=== PATIENT | male | born 2000 | race Caucasian/White ===

== ENCOUNTER 2019-09-09 23:32 | Emergency (ER) | payer BC ==
[2019-09-09] MEDS ORDERED: Ibuprofen 200 MG TAB ONE (23:55)
--- NOTE | 2019-09-10 00:01 | RAD ---
RIGHT ANKLE THREE VIEWS: HISTORY: Right ankle pain, injury. FINDINGS: Soft tissue swelling is present. The ankle mortise is maintained. No acute fracture or dislocation is identified. POS: [facility]
== END 2019-09-10 00:15 | disposition home or self-care (01) ==
LOC: NAV ERS 23:32
DX: S93.401A Sprain of unspecified ligament of right ankle, initial encounter (principal); F98.8 Other specified behavioral and emotional disorders with onset usually occurring in childhood and adolescence; Z79.899 Other long term (current) drug therapy; X50.1XXA Overexertion from prolonged static or awkward postures, initial encounter

== ENCOUNTER 2020-02-08 20:43 | Emergency (ER) | payer BC ==
[2020-02-08] MEDS ORDERED: Lidocaine 1% (PF) 30 ML VIAL ONE (21:00)
[2020-02-08] MEDS ORDERED: Adacel (T-DAP) 0.5 ML SYRINGE ONE (21:01)
[2020-02-08] MEDS ORDERED: Bacitracin 1 PK ONE (21:25)
== END 2020-02-08 21:30 | disposition home or self-care (01) ==
LOC: NAV ERS 20:43
DX: S61.412A Laceration without foreign body of left hand, initial encounter (principal); F98.8 Other specified behavioral and emotional disorders with onset usually occurring in childhood and adolescence; Z79.899 Other long term (current) drug therapy; Z23 Encounter for immunization; W26.0XXA Contact with knife, initial encounter
CPT/HCPCS: 12002; 90471; 90715; J2001

== ENCOUNTER 2022-08-14 19:25 | Emergency (ER) | payer BC ==
[2022-08-14] MEDS ORDERED: Acetaminophen 500 MG TAB ONE (19:32)
[2022-08-14 20:05] LABS: #Basophils 0.1 thou/uL (0.0-0.2); #Eosinphils 0.1 thou/uL (0.0-0.7); #Lymphocytes 0.7 thou/uL (1.20-3.40); #Monocytes 0.6 thou/uL (0.11-0.59); #Neutrophils 6.6 thou/uL (1.40-6.50); %Basophils 1.4 % (0.0-1.0); %Eosinophils 1.7 % (0.0-10.0); %Lymphocytes 8.6 % (21.0-51.0); %Monocytes 7.2 % (0.0-10.0); %Neutrophils 81.2 % (42.0-75.0); Hemoglobin 13.4 g/dL (14.0-18.0); Mean Corpuscular HGB CONC 32.7 g/dL (32.0-36.0); Mean Corpuscular Hemoglobin 29.9 pg (27.0-31.0); Mean Corpuscular Volume 91.4 fl (78.0-98.0); Mean Platelet Volume 7.8 fL (7.4-10.4); Platelet Count 205 thou/uL (130-400); RBC Distribution Width 11.8 % (11.5-14.5); Red Blood Cell (RBC) Count 4.49 mill/uL (4.70-6.10); White Blood Cell (WBC) Count 8.2 thou/uL (4.8-10.8)
[2022-08-14] MEDS ORDERED: Albuterol Sulfate 2.5 mg/0.5 ml Neb ONE (20:16)
[2022-08-14] MEDS ORDERED: Sodium Chloride 0.9% 1,000 ML ONE (20:16)
[2022-08-14 20:17] LABS: Anion Gap 16 mmol/L (10-20); BUN (Urea Nitrogen) 7 mg/dL (8.9-20.6); Calc. Creatinine Clearance 0 mL/min (70-130); Calcium 8.8 mg/dL (7.8-10.44); Carbon Dioxide 24 mmol/L (22-29); Chloride 101 mmol/L (98-107); Estimated GFR 125; Glucose 125 mg/dL (70-105); Potassium 3.7 mmol/L (3.5-5.1); Sodium 137 mmol/L (136-145)
== END 2022-08-14 21:47 | disposition home or self-care (01) ==
LOC: NAV ERS 19:25
DX: R06.02 Shortness of breath (principal); R05.9 Cough, unspecified
CPT/HCPCS: 71046; 80048; 85025; 85379; 87804; J7050; J7611